=== PATIENT | male | born 1990 | race African-American/Black ===

== ENCOUNTER 2024-12-08 21:43 | Emergency (ER) | payer SELFPAY ==
[~2024-12-08] VITALS: Ht 195.6 cm; Wt 75.0 kg
[2024-12-08 21:48] VITALS: O2SAT 96
[2024-12-08 21:50] VITALS: TEMP 37.1; O2SAT 100
[2024-12-08] MEDS: SODIUM CHLORIDE 0.9% 1,000 ML IV ONE (22:01)
[2024-12-08] MEDS: TETANUS, DIPHTHERIA, PERTUSSIS VAC/PF 0.5ML (>10YR OLD) IM ONE (22:01)
[2024-12-08 22:02] VITALS: BP 160/99; PULSE 99; RESP 15
[2024-12-08] MEDS: MORPHINE SULFATE 4 MG/ML INJ (FOR IV/IM USE) IV STA (22:02)
[2024-12-08] MEDS: ONDANSETRON HCL 4MG/2ML INJ IV STA (22:02)
[2024-12-08] MEDS: CEFAZOLIN 1000MG PREMIX 50 ML IV ONE (22:02)
== END 2024-12-08 22:19 | disposition short-term general hospital (02) ==
LOC: ER 21:43
DX: S21.132A Puncture wound without foreign body of left front wall of thorax without penetration into thoracic cavity, initial encounter (principal); S21.232A Puncture wound without foreign body of left back wall of thorax without penetration into thoracic cavity, initial encounter; S41.132A Puncture wound without foreign body of left upper arm, initial encounter; F17.200 Nicotine dependence, unspecified, uncomplicated; F12.90 Cannabis use, unspecified, uncomplicated; W34.09XA Accidental discharge from other specified firearms, initial encounter; Y93.89 Activity, other specified; Y92.89 Other specified places as the place of occurrence of the external cause; Y99.8 Other external cause status
CPT/HCPCS: 99285; 96365; 96375; 71045; 90715; 90471; J0690; J2405; J2270; J7030